=== PATIENT | female | born 1990 | race Caucasian/White ===

== ENCOUNTER 2016-12-18 03:28 | Inpatient (IN) | payer MEDICAID ==
[2016-12-18] MEDS ORDERED: MISOPROSTOL 0.2 MG TABLET ONE (03:35)
[2016-12-18] MEDS ORDERED: IBUPROFEN 800 MG TABLET ONE (04:22)
[2016-12-18] MEDS ORDERED: BENZOCAINE/MENTHOL AEROSOL SPRAY 56 ML TOP PRN (04:24)
[2016-12-18] MEDS ORDERED: MEASLES,MUMPS&RUBELLA VACC/PF 0.5 ML VIAL SUBCUT PRN (04:24)
[2016-12-18] MEDS ORDERED: OXYTOCIN/NORMAL SALINE 1,000 ML IV PRN (04:24)
[2016-12-18] MEDS ORDERED: ACETAMINOPHEN 650 MG SUPP.RECT PR PRN (04:24)
[2016-12-18] MEDS ORDERED: DIPHENHYDRAMINE HCL 25 MG CAPSULE PO PRN (04:24)
[2016-12-18] MEDS ORDERED: NA PHOS,M-B/NA PHOS,DI-BA (ADULT) 133 ML ENEMA PR PRN (04:24)
[2016-12-18] MEDS ORDERED: PSEUDOEPHEDRINE HCL 30 MG TABLET PO PRN (04:24)
[2016-12-18] MEDS ORDERED: DIBUCAINE 1% OINTMENT 28 GM TP PRN (04:24)
[2016-12-18] MEDS ORDERED: ZOLPIDEM TARTRATE 5 MG TABLET PO PRN (04:24)
[2016-12-18] MEDS ORDERED: DIPH/PERTUSS(ACELL)/TETANUS VAC/PF 0.5 ML SYR (>=10YO) IM PRN (04:24)
[2016-12-18] MEDS ORDERED: PROMETHAZINE HCL 25 MG TABLET PO PRN (04:24)
[2016-12-18] MEDS ORDERED: PROMETHAZINE HCL 25 MG SUPP.RECT PR PRN (04:24)
[2016-12-18] MEDS ORDERED: MAG HYDROX/AL HYDROX/SIMETH SUSP 30 ML UDCUP ONE (04:24)
[2016-12-18] MEDS ORDERED: GLYCERIN/WITCH HAZEL LEAF 1 EACH MED..PAD TP PRN (04:24)
[2016-12-18] MEDS ORDERED: MAGNESIUM HYDROXIDE SUSP 30 ML UDCUP PO PRN (04:24)
[2016-12-18] MEDS ORDERED: ACETAMINOPHEN WITH CODEINE #3 TABLET PO PRN ×2 (04:24)
[2016-12-18] MEDS ORDERED: PROMETHAZINE HCL INJ 25 MG/1 ML VIAL IV PRN (04:24)
[2016-12-18 05:11] LABS: ABSOLUTE EOSINOPHILS # (AUTO) 0.1 10^3/uL (0.0-0.6); ABSOLUTE LYMPHOCYTES (AUTO) 3.1 10^3/uL (0.5-4.7); ABSOLUTE MONOCYTES (AUTO) 1.6 10^3/uL (0.1-1.4); ABSOLUTE NEUT (AUTO) 14.8 10^3/uL (1.7-8.2); BASOPHILS % (AUTO) 0.1 % (0-2); EOSINOPHILS % (AUTO) 0.3 % (0-6); HEMATOCRIT 26.7 % (36.0-47.0); HEMOGLOBIN 8.9 g/dL (12.0-15.5); LYMPHOCYTES % (AUTO) 15.8 % (13-45); MEAN CORPUSCULAR HEMOGLOBIN 28.5 pg (27.0-33.4); MEAN CORPUSCULAR HGB CONC 33.4 g/dL (32.0-36.0); MEAN CORPUSCULAR VOLUME 85 fl (80-97); MONOCYTES % (AUTO) 8.2 % (3-13); RED BLOOD COUNT 3.13 10^6/uL (3.72-5.28); RED CELL DISTRIBUTION WIDTH 13.2 % (11.5-14.0); SEGMENTED NEUTROPHILS % (AUTO) 75.6 % (42-78); WHITE BLOOD COUNT 19.6 10^3/uL (4.0-10.5)
--- NOTE | 2016-12-18 06:30 | Admission Physical ---
Datetime Report Generated by CPN: 12/18/2016 06:29 CURRENT ADMISSION Chief Complaint: Uterine Contractions Indication for Induction: Not Applicable Admit Plan: Admit to Unit ALLERGIES Medication Allergies: No Medication Allergies: No Known Allergies (12/18/2016) Latex: No Latex Allergies OBSTETRICAL HISTORY EDC: 12/23/2016 00:00 : 2 Para: 1 Term: 1 : 0 SAB: 0 IAB: 0 Livin Gestational Diabetes: No Rh Sensitization: No Incompetent Cervix: No SHIREEN: No Infertility: No ART Treatment: No Uterine Anomaly: No IUGR: No Hx Previous C/S: No Macrosomia: No Hx Loss/Stillborn: No PIH: No Hx : No Placenta Previa/Abruption: No Depression/PP Depression: No PTL/PROM: No Post Hemorrhage: No Current Procedures: Ultrasound SEE RECORDS Alcohol: No Marijuana : No Cocaine: No Other Illicit Drugs: No Cigarettes: Current Everyday Smoker. 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 Surgery: No Heart Disease: No Hosp/Surgery: No Autoimmune Disorder: No Anesthetic Complications: No Kidney Disease: No Abnormal Pap Smear: No Neuro/Epilepsy: No Psychiatric Disorders: No Other Medical Diseases: No Hepatitis/Liver Disease: No Significant Family History: No Varicosities/Phlebitis: No Trauma/Violence : No Thyroid Dysfunction: No INFECTIOUS HISTORY Gonorrhea: No Genital Herpes: No Chlamydia: No Tuberculosis: No Syphilis: No Hepatitis: No HIV/AIDS Exposure: No Rash or Viral Illness: No HPV: No PHYSICAL EXAM General: Normal HEENT: Normal Neurologic: Normal Thyroid: Normal Heart: Normal Lungs: Normal Breast: Deferred Back: Normal Abdomen: Normal Genitourinary Exam: Normal Extremities: Normal DTRs: Normal Pelvic Type: Adequate Vital Signs: Reviewed FETUS A EGA: 39.2 Decelerations: None Presentation: Vertex Admit Comment: delivered PLANS FOR LABOR AND DELIVERY Labor and Delivery: None Pain Management: None Feeding Preference: Formula Benefit of Breast Feed Discussed: Yes Circumcision: No INFORMED CONSENT Signature: with User ID: [email or web address]
--- NOTE | 2016-12-18 06:38 | Delivery Summary ---
Del Sum A-C Datetime Report Generated by CPN: 12/18/2016 06:38 DELIVERY PERSONNEL DELIVERY PERSONNEL: [phone] Delivery Doctor:: Placido Lorenzo MD Labor and Delivery Nurse:: Arabella James RNdisability counselor Nurse:: May Vivar RN Yarn Mercerizer Operator/WELD ENGINEER: Roxann Odonnell, ST MATERNAL INFORMATION Delivery Anesthesia: None Medications After Delivery: Pitocin Drip 20 Units/1000ml NSS Estimated Blood Loss (ml): 250 Maternal Complications: Precipitous Labor (<3hrs) LABOR SUMMARY EDC: 12/23/2016 00:00 No. Babies in Womb: 1 Attempted: No Labor Anesthesia: None LABOR INFORMATION Reason for Induction: Not Applicable Onset of Labor: 12/18/2016 02:30 Complete Dilatation: 12/18/2016 03:30 Oxytocin: N/A Group B Beta Strep: positive Antibiotics # of Doses: 0 Steroids Given: None Reason Steroids Not Administered: Not Applicable MEMBRANES Membranes Rupture Method: Spontaneous Rupture of Membranes: 12/18/2016 02:30 (Annotations: pt reports that her membranes ruptured at 0230 ) Length of Rupture (hr): 1.27 Amniotic Fluid Color: Clear Amniotic Fluid Amount: Small Amniotic Fluid Odor: Normal STAGES OF LABOR Stage 1 hr: 1 Stage 1 min: 0 Stage 2 hr: 0 Stage 2 min: 16 Stage 3 hr: 0 Stage 3 min: 17 Total Time in Labor hr: 1 Total Time in Labor min: 33 VAGINAL DELIVERY Episiotomy: None Laceration Extension: N/A Laceration Type: None Sponge Count Correct: Yes; Vaginal Sweep Performed Sharps Count Correct: Yes CSECTION DELIVERY Primary Indication: N/A CSection Incision: N/A BABY A INFORMATION Delivery Date/Time: 12/18/2016 03:46 Method of Delivery: Vaginal Born in Route : No : N/A Forceps: N/A Vacuum Extraction: N/A Shoulder Dystocia : No PRESENTATION/POSITION BABY A Presentation: Cephalic Cephalic Presentation: Vertex Vertex Position: OA Breech Presentation: N/A PLACENTA INFORMATION BABY A Placenta Delivery Time : 12/18/2016 04:03 Placenta Method of Delivery: Spontaneous Placenta Status: Delivered SCORES BABY A Heart Rate 1 min: >100 bpm Resp Effort 1 min: Good Cry Reflex Irritability 1 min: Cough or Sneeze or Pulls Away Muscle Tone 1 min: Active Motion Color 1 min: Body [place], Extremities Blue Resuscitation Effort 1 min: Tactile Stimulation SCORE 1 MIN: 9 Heart Rate 5 min: >100 bpm Resp Effort 5 min: Good Cry Reflex Irritability 5 min: Cough or Sneeze or Pulls Away Muscle Tone 5 min: Active Motion Color 5 min: Body [place], Extremities Blue Resuscitation Effort 5 min: N/A SCORE 5 MIN: 9 INFORMATION BABY A Gestational Age at Delivery: 39.2 Gestational Status: Full Term- 39- 40.6 Weeks Infant Outcome : Liveborn Infant Condition : Stable Infant Sex: Male IDENTIFICATION BABY A Verification Date/Time: 12/18/2016 05:33 ID Band Number: [id number] Mother's Name Verified: Yes RN Verifying : B Jaron, RN Additional Verifying Personnel: L Parra, RN WEIGHT/LENGTH BABY A Infant Birthweight (gm): 3320 Weight (lb): 7 Weight (oz): 5 Length (in): 20.00 Infant Length (cm): 50.80 CORD INFORMATION BABY A No. Cord Vessels: 3 Nuchal Cord : N/A Cord Blood Taken: Yes-For Storage (Mom's Blood type +) Infant Suction: None ASSESSMENT BABY A Infant Complications: None Physical Findings at Delivery: Within Normal Limits Infant Respirations: Appears Normal Skin to Skin: Yes Skin to Skin Time (min): 60 English Composition Instructor/ALS Called : No Transferred To: Remains with Mother BABY B INFORMATION : N/A SIGNATURES Signature: with User ID: [email or web address]
--- NOTE | 2016-12-18 08:51 | PDOC PROGRESS REPORT ---
Subjective-OB Subjective: Post Delivery Day: 26 year old. Denies any needs at this time Doing well, no c/o, sitting up in bed, voiding, ambulating, moderate bleeding, bottle feeding, male , no circ Physical Exam (OB) Vital Signs: Temp Pulse Resp BP Pulse Ox 99.4 F 83 18 131/88 H 100 12/18/16 07:46 12/18/16 07:46 12/18/16 07:46 12/18/16 07:46 12/18/16 06:50 Objective-Diagnostic Laboratory: 12/18/16 04:42 12/18/16 12/18/16 04:42 04:42 WBC 19.6 H RBC 3.13 L Hgb 8.9 L Hct 26.7 L MCV 85 MCH 28.5 MCHC 33.4 RDW 13.2 Plt Count 246 Seg Neutrophils % 75.6 Lymphocytes % 15.8 Monocytes % 8.2 Eosinophils % 0.3 Basophils % 0.1 Absolute Neutrophils 14.8 H Absolute Lymphocytes 3.1 Absolute Monocytes 1.6 H Absolute Eosinophils 0.1 Absolute Basophils 0.0 Blood Type B POSITIVE Antibody Screen NEGATIVE Assessment and Plan(PN) - Assessment and Plan (1) Vaginal delivery Is this a current diagnosis for this admission?: Yes (2) Anemia Qualifiers: Anemia type: iron deficiency Is this a current diagnosis for this admission?: Yes - Time Spent with Patient Time with patient: Less than 15 minutes Medications reviewed and adjusted accordingly: Yes - Disposition Anticipated Discharge: Home Within: within 48 hours
[2016-12-18] MEDS: IBUPROFEN 800 MG TABLET PO SCH ×2 (10:03→17:44)
[2016-12-18] MEDS: SENNOSIDES/DOCUSATE 8.6-50 MG 1 EACH TABLET PO SCH (10:03)
[2016-12-18] MEDS: DOCUSATE SODIUM 100 MG CAPSULE PO SCH ×2 (10:03→17:45)
[2016-12-18] MEDS: FAMOTIDINE 20 MG TABLET PO SCH ×2 (10:03→21:33)
[2016-12-18] MEDS: PRENATAL VITAMIN W-O CA NO5/FE FUMARATE/FA CAPSULE PO SCH (10:04)
[2016-12-18] MEDS: FERROUS SULFATE 325 MG TABLET PO SCH ×2 (10:04→17:45)
[2016-12-19] MEDS: IBUPROFEN 800 MG TABLET PO SCH ×3 (01:31→18:48)
[2016-12-19 08:15] LABS: HEMATOCRIT 18.6 % (36.0-47.0); MEAN CORPUSCULAR HEMOGLOBIN 28.1 pg (27.0-33.4); MEAN CORPUSCULAR HGB CONC 33.2 g/dL (32.0-36.0); MEAN CORPUSCULAR VOLUME 85 fl (80-97); RED CELL DISTRIBUTION WIDTH 13.6 % (11.5-14.0)
[2016-12-19 08:23] LABS: HEMOGLOBIN 6.2 g/dL (12.0-15.5)
[2016-12-19] MEDS: PRENATAL VITAMIN W-O CA NO5/FE FUMARATE/FA CAPSULE PO SCH (10:02)
[2016-12-19] MEDS: SENNOSIDES/DOCUSATE 8.6-50 MG 1 EACH TABLET PO SCH (10:03)
[2016-12-19] MEDS: FERROUS SULFATE 325 MG TABLET PO SCH ×2 (10:04→18:48)
[2016-12-19] MEDS: FAMOTIDINE 20 MG TABLET PO SCH ×2 (10:04→22:46)
[2016-12-19] MEDS: DOCUSATE SODIUM 100 MG CAPSULE PO SCH ×2 (10:04→18:46)
--- NOTE | 2016-12-19 12:47 | PDOC PROGRESS REPORT ---
Subjective-OB Subjective: Post Delivery Day: 26 year old. Denies any needs at this time pt sitting up bottlefeeding [id number] mild lochia denies dizziness or weakness hemoglobin down to 6 taking iron bid encourage pt to take iron bid anticipate d/c in AM Physical Exam (OB) Vital Signs: Temp Pulse Resp BP Pulse Ox 98.9 F 82 16 119/70 100 12/19/16 11:14 12/19/16 11:14 12/19/16 11:14 12/19/16 11:14 12/19/16 11:14 Intake & Output 12/18/16 12/19/16 12/20/16 06:59 06:59 06:59 Intake Total 300 Balance 300 - PIH/Pre-Eclampsia Clonus: Negative Headache: Absent Epigastric Pain: No Visual Changes: No - Lochia Lochia Amount: Small 10-25 ml Lochia Color: Rubra/Red - Abdomen Description: Soft, Round Hernia Present: No Fundal Description: Firm Fundal Height: u/u - u/2 Objective-Diagnostic Laboratory: 12/19/16 07:55 12/19/16 07:55 WBC 15.0 H RBC 2.20 L Hgb 6.2 L D Hct 18.6 L MCV 85 MCH 28.1 MCHC 33.2 RDW 13.6 Plt Count 194 Assessment and Plan(PN) - Time Spent with Patient Medications reviewed and adjusted accordingly: Yes - Disposition Anticipated Discharge: Home
[2016-12-20] MEDS: IBUPROFEN 800 MG TABLET PO SCH ×3 (04:43→18:20)
[2016-12-20 09:50] LABS: ABSOLUTE EOSINOPHILS # (AUTO) 0.2 10^3/uL (0.0-0.6); ABSOLUTE LYMPHOCYTES (AUTO) 3.5 10^3/uL (0.5-4.7); ABSOLUTE MONOCYTES (AUTO) 1.1 10^3/uL (0.1-1.4); ABSOLUTE NEUT (AUTO) 9.9 10^3/uL (1.7-8.2); BASOPHILS % (AUTO) 0.2 % (0-2); EOSINOPHILS % (AUTO) 1.5 % (0-6); HEMATOCRIT 21.1 % (36.0-47.0); LYMPHOCYTES % (AUTO) 23.6 % (13-45); MEAN CORPUSCULAR HEMOGLOBIN 27.6 pg (27.0-33.4); MEAN CORPUSCULAR HGB CONC 31.7 g/dL (32.0-36.0); MEAN CORPUSCULAR VOLUME 87 fl (80-97); MONOCYTES % (AUTO) 7.7 % (3-13); RED BLOOD COUNT 2.42 10^6/uL (3.72-5.28); RED CELL DISTRIBUTION WIDTH 13.9 % (11.5-14.0); WHITE BLOOD COUNT 14.8 10^3/uL (4.0-10.5)
[2016-12-20 09:54] LABS: HEMOGLOBIN 6.7 g/dL (12.0-15.5)
[2016-12-20] MEDS: FERROUS SULFATE 325 MG TABLET PO SCH ×2 (10:00→18:20)
[2016-12-20] MEDS: SENNOSIDES/DOCUSATE 8.6-50 MG 1 EACH TABLET PO SCH (10:28)
[2016-12-20] MEDS: PRENATAL VITAMIN W-O CA NO5/FE FUMARATE/FA CAPSULE PO SCH (10:28)
[2016-12-20] MEDS: FAMOTIDINE 20 MG TABLET PO SCH ×2 (10:29→22:45)
[2016-12-20] MEDS: DOCUSATE SODIUM 100 MG CAPSULE PO SCH ×2 (10:30→18:21)
--- NOTE | 2016-12-20 12:41 | PDOC PROGRESS REPORT ---
Subjective-OB Subjective: Post Delivery Day: 2 26 year old. Denies any needs at this time, states lochia is stable, pain well controlled, states she is a little dizzy when she gets up and is tired. Physical Exam (OB) Vital Signs: Temp Pulse Resp BP Pulse Ox 98.9 F 87 16 128/76 H 100 12/20/16 11:12 12/20/16 11:12 12/20/16 11:12 12/20/16 11:12 12/20/16 11:12 Intake & Output 12/19/16 12/20/16 12/21/16 06:59 06:59 06:59 Intake Total 300 320 Balance 300 320 - PIH/Pre-Eclampsia Clonus: Negative Headache: Absent Epigastric Pain: No Visual Changes: No - Lochia Lochia Amount: Small 10-25 ml Lochia Color: Rubra/Red - Abdomen Description: Soft, Round Hernia Present: No Fundal Description: Firm, Midline Fundal Height: u/u - u/2 Objective-Diagnostic Laboratory: 12/20/16 09:33 12/18/16 12/18/16 12/20/16 04:42 04:42 09:33 WBC 19.6 H 14.8 H RBC 3.13 L 2.42 L Hgb 8.9 L 6.7 L Hct 26.7 L 21.1 L MCV 85 87 MCH 28.5 27.6 MCHC 33.4 31.7 L RDW 13.2 13.9 Plt Count 246 236 Seg Neutrophils % 75.6 67.0 Lymphocytes % 15.8 23.6 Monocytes % 8.2 7.7 Eosinophils % 0.3 1.5 Basophils % 0.1 0.2 Absolute Neutrophils 14.8 H 9.9 H Absolute Lymphocytes 3.1 3.5 Absolute Monocytes 1.6 H 1.1 Absolute Eosinophils 0.1 0.2 Absolute Basophils 0.0 0.0 Blood Type B POSITIVE Antibody Screen NEGATIVE Assessment and Plan(PN) - Assessment and Plan (1) Acute blood loss anemia Is this a current diagnosis for this admission?: YesPlan: transfuse 2 units repeat cbc in the am ferrous sulfate increase dietary iron (2) Vaginal delivery Is this a current diagnosis for this admission?: YesPlan: routine pp care anticipate d/c home tomorrow - Time Spent with Patient Time with patient: Less than 15 minutes Critical Time spent with patient: Less than 15 minutes Medications reviewed and adjusted accordingly: Yes - Disposition Anticipated Discharge: Home Within: within 24 hours
[2016-12-20 20:28] LABS: ABSOLUTE EOSINOPHILS # (AUTO) 0.2 10^3/uL (0.0-0.6); ABSOLUTE LYMPHOCYTES (AUTO) 3.8 10^3/uL (0.5-4.7); ABSOLUTE MONOCYTES (AUTO) 1.3 10^3/uL (0.1-1.4); BASOPHILS % (AUTO) 0.2 % (0-2); EOSINOPHILS % (AUTO) 1.6 % (0-6); HEMATOCRIT 25.9 % (36.0-47.0); HEMOGLOBIN 8.6 g/dL (12.0-15.5); HGB HCT DIFFERENCE -0.1; LYMPHOCYTES % (AUTO) 26.6 % (13-45); MEAN CORPUSCULAR HEMOGLOBIN 29.3 pg (27.0-33.4); MEAN CORPUSCULAR HGB CONC 33.2 g/dL (32.0-36.0); MEAN CORPUSCULAR VOLUME 88 fl (80-97); RED BLOOD COUNT 2.93 10^6/uL (3.72-5.28); RED CELL DISTRIBUTION WIDTH 14.6 % (11.5-14.0); SEGMENTED NEUTROPHILS % (AUTO) 62.6 % (42-78); WHITE BLOOD COUNT 14.3 10^3/uL (4.0-10.5)
--- NOTE | 2016-12-20 21:18 | PDOC DISCHARGE SUMMARY ---
Final Diagnosis Discharge Date: 12/20/16 - Final Diagnosis (1) Acute blood loss anemia Is this a current diagnosis for this admission?: Yes (2) Anemia Is this a current diagnosis for this admission?: Yes (3) Vaginal delivery Is this a current diagnosis for this admission?: Yes Discharge Data - Discharge Medication Home Medications: Acetaminophen with Codeine [Tylenol #3 Tablet] 2 each PO Q4HP PRN #30 tablet Dibucaine 1% Ointment [Nupercainal 1% Oint 28 gm] 1 applic TP PRN PRN #1 tube Docusate Sodium [Colace 100 mg Capsule] 100 mg PO BID #60 capsule 12/20/16 Ferrous Sulfate [Feosol 325 mg Tablet] 325 mg PO BID #60 tablet 12/20/16 Ibuprofen [Motrin 800 mg Tablet] 800 mg PO Q8A #90 tablet 12/20/16 Gestational Age: 39+2ega Reason(s) for Admission: Onset of Labor, Group B Strep Positive Admission Note: pt presented with contractions at term in labor. Procedures: NST Intrapartum Procedure(s): Spontaneous Vaginal Delivery Intrapartum Procedure Note: uncomplicated by Dr. Lorenzo Complication(s): Transfusion Complication(s) Note: transfusion - Data Baby 1 Male at 1 minute: 9 at 5 minutes: 9 Weight: 3.317 kg Home with Mother: Yes Complications: No - Diagnosis Test Laboratory: Temp Pulse Resp BP Pulse Ox 98.4 F 91 16 122/70 100 12/20/16 19:30 12/20/16 19:30 12/20/16 19:30 12/20/16 19:30 12/20/16 19:30 12/18/16 12/19/16 12/20/16 04:42 07:55 09:33 RBC 3.13 L 2.20 L 2.42 L Hgb 8.9 L 6.2 L D 6.7 L Hct 26.7 L 18.6 L 21.1 L 12/20/16 20:24 RBC 2.93 L Hgb 8.6 L Hct 25.9 L - Discharge information/Instructions Discharge Activity: Activity As Tolerated Discharge Diet: As Tolerated Additional Diet Instructions: none Disposition: HOME, SELF-CARE Follow up with: [facility] in: 4
[2016-12-20 22:13] VITALS: BP 122/70
== END 2016-12-20 22:35 | disposition home or self-care (01) | DRG 775 ==
LOC: LC 03:28 → LR 03:33 → 2N 06:28
PROVIDERS: ADMIT Obstetrics & Gynecology; ATTEND Obstetrics & Gynecology
PROC: 10E0XZZ Delivery of Products of Conception, External Approach (ICD-10-PCS; principal; 2016-12-18)
PROC: 4A1HXCZ Monitoring of Products of Conception, Cardiac Rate, External Approach (ICD-10-PCS; 2016-12-18)
PROC: 30233N1 Transfusion of Nonautologous Red Blood Cells into Peripheral Vein, Percutaneous Approach (ICD-10-PCS; 2016-12-20)
DX: O62.3 Precipitate labor (principal); D62 Acute posthemorrhagic anemia; O99.824 Streptococcus B carrier state complicating childbirth; O99.02 Anemia complicating childbirth; D50.9 Iron deficiency anemia, unspecified; O99.334 Smoking (tobacco) complicating childbirth; F17.210 Nicotine dependence, cigarettes, uncomplicated; Z3A.39 39 weeks gestation of pregnancy; Z37.0 Single live birth
CPT/HCPCS: 36415; 36430; 85025; 85027; 86592; 86850; 86900; 86901; 86920; P9016

== ENCOUNTER 2019-06-30 10:34 | Emergency (ER) | payer SELFPAY ==
[2019-06-30 10:42] VITALS: BP 115/73
--- NOTE | 2019-06-30 10:47 | ER Document Report ---
HPI - HPI Time Seen by Provider: 06/30/19 10:40 Pain Level: 5 Notes: Patient is a 28-year-old female who presents to the ED complaining of nasal congestion/discharge, dry nonproductive cough, fever, body ache 4 days. Patient states that she is still eating and drinking without difficulties, but does have a decreased p.o. intake. She is still urinating normally having normal bowel movements. Patient has been using some [id number] meds for symptoms. She denies any significant past medical history including cardiopulmonary history and immunocompromised conditions. Denies any current headache, neck pain, sore throat, chest pain, palpitations, syncope, shortness of breath, wheeze, dyspnea, abdominal pain, nausea/vomiting/diarrhea, urinary retention, dysuria, hematuria, or rash. - ROS Systems Reviewed and Negative: Yes All other systems reviewed and negative - REPRODUCTIVE Reproductive: DENIES: : Past Medical History - Social History Smoking Status: Current Every Day Smoker Chew tobacco use (# tins/day): No Frequency of alcohol use: None Drug Abuse: None Family History: Reviewed & Not Pertinent Patient has suicidal ideation: No Patient has homicidal ideation: No Vertical Provider Document - CONSTITUTIONAL Agree With Documented VS: Yes Notes: PHYSICAL EXAMINATION: GENERAL: Well-appearing, well-nourished and in no acute distress. A&Ox4. Answers questions appropriately. Moves comfortably w/o notable distress HEAD: Atraumatic, normocephalic. EYES: Pupils equal round and reactive to light, extraocular movements intact, sclera anicteric, conjunctiva are normal. ENT: Nares patent and with clear discharge. oropharynx no erythema without exu dates. No tonsilar hypertrophy without erythema or exudate. No palatine shift. Uvula midline. No tongue protrusion. No drooling, hoarseness, or airway compromise. Moist mucous membranes. No sinus tenderness. NECK: Normal range of motion, supple without lymphadenopathy. No rigidity/meningismus. LUNGS: Breath sounds clear to auscultation bilaterally and equal. No wheezes rales or rhonchi. No retractions HEART: Regular rate and rhythm without murmurs, rubs, gallops. NEUROLOGICAL: Normal speech, normal gait. PSYCH: Normal mood, normal affect. SKIN: Warm, Dry, normal turgor, no rashes or lesions noted. - INFECTION CONTROL TRAVEL OUTSIDE OF THE [place] IN LAST 30 DAYS: No Course - Re-evaluation Re-evalutation: 06/30/19 10:45 Patient is an afebrile, well-hydrated, 28-year-old female who presents to the ED with acute URI, suspect influenza. Vitals are acceptable. PE is otherwise unremarkable. No labs or imaging warranted at this time based on H&P. Patient has no significant cardiopulmonary or immunocompromised medical conditions. Patient's lungs are clear to auscultation bilaterally without tachycardia, hypoxia, or tachypnea. Patient is tolerating p.o. without any difficulties. Patient is beyond the testing and treatment window for influenza. Low suspicion for any meningitis, sepsis, peritonsillar/pharyngeal abscess, respiratory compromise, severe dehydration, or other emergent systemic condition at this time. Patient is aware this condition can change from initial presentation and she needs to monitor symptoms closely. Conservative measures otherwise for symptoms. Recheck with your PCM in 3-5 days. Return to the ED with any worsening/concerning symptoms otherwise as reviewed in discharge. Patient is in agreement. - Vital Signs Vital signs: Temp Pulse Resp BP Pulse Ox 97.8 F 109 H 16 115/73 99 06/30/19 10:38 06/30/19 10:38 06/30/19 10:38 06/30/19 10:38 06/30/19 10:38 Discharge - Discharge Clinical Impression: Acute URI Condition: Stable Disposition: HOME, SELF-CARE Instructions: Upper Respiratory Illness ([facility]) Additional Instructions: Maintain adequate fluid intake tylenol/ibuprofen as needed alternating every 3 hours for fever/body ache over the counter cold medication as needed for symptoms Humidified air may help Wash your hands regularly Wear a mask when coughing F/u: with your PCM in 3-5 days for a recheck Return to the ED with any fever, altered mental status/behavior, chest pain, palpitations, syncope, headache, neck pain/stiffness, shortness of breath, chest pains, wheezing, drooling, trouble swallowing/breathing, abdominal pain, n/v/d, rash, or worsening/concerning symptoms otherwise. Forms: Smoking Cessation Education Referrals: DARLENE RODRIGUEZ METAL BONDER [Primary Care Provider] - Follow up as needed
== END 2019-06-30 11:11 | disposition home or self-care (01) ==
LOC: ER 10:34
DX: J06.9 Acute upper respiratory infection, unspecified (principal); R09.81 Nasal congestion; R50.9 Fever, unspecified; M79.10 Myalgia, unspecified site; F17.200 Nicotine dependence, unspecified, uncomplicated
CPT/HCPCS: 99283